=== PATIENT | female | born 1945 | race Caucasian/White ===

== ENCOUNTER 2019-09-16 05:19 | Inpatient (IN) ==
[2019-09-16] MEDS ORDERED: VANCOMYCIN 1,000 MG VIAL ONE (05:57)
[2019-09-16] MEDS ORDERED: CLINDAMYCIN INJ 50 ML IV ONE (05:58)
[2019-09-16] MEDS ORDERED: VANCOMYCIN INJ 1,000 MG in SODIUM CHLORIDE 0.9% 250 ML IV ONE (06:00)
[2019-09-16] MEDS ORDERED: ceFAZolin 1,000 MG in SYRINGE 1 EACH IV ONE (06:00)
[2019-09-16] MEDS ORDERED: DEXAMETHASONE 4 MG/1 ML VIAL ONE ×3 (06:28→08:52)
[2019-09-16] MEDS ORDERED: LIDOCAINE 1% 5 ML VIAL ONE ×2 (06:28→08:50)
[2019-09-16] MEDS ORDERED: BUPIVACAINE MPF 0.5% /EPI 30 ML VIAL ONE (06:28)
[2019-09-16] MEDS ORDERED: LACTATED RINGERS 1,000 ML IV SCH (07:00)
[2019-09-16] MEDS ORDERED: BISACODYL 10 MG SUPP RECTAL PRN (07:24)
[2019-09-16] MEDS ORDERED: MAGNESIUM HYDROXIDE SUSP 30 ML UDCUP PO PRN (07:24)
[2019-09-16] MEDS ORDERED: LACTULOSE 20 GM/30 ML UDCUP PO PRN (07:24)
[2019-09-16] MEDS ORDERED: PROMETHAZINE 25 MG/1 ML VIAL IM PRN (07:24)
[2019-09-16] MEDS ORDERED: TEMAZEPAM 7.5 MG CAPSULE PO PRN (07:24)
[2019-09-16] MEDS ORDERED: ALBUTEROL 2.5 MG/3 ML NEB RESP TX PRN (07:27)
[2019-09-16] MEDS ORDERED: tiZANidine 4 MG TABLET PO PRN (07:27)
[2019-09-16] MEDS ORDERED: ACETAMINOPHEN 500 MG TABLET PO PRN (07:27)
[2019-09-16] MEDS ORDERED: traMADol 50 MG TABLET PO PRN (07:27)
[2019-09-16] MEDS ORDERED: hydroCHLOROthiazide 25 MG TABLET PO PRN (07:27)
[2019-09-16] MEDS ORDERED: LIDOCAINE 2% 5 ML VIAL ONE (08:50)
[2019-09-16] MEDS ORDERED: propofoL 200 MG/20 ML VIAL IV ONE (08:50)
[2019-09-16] MEDS ORDERED: MIDAZOLAM 2 MG/2 ML VIAL ONE (08:51)
[2019-09-16] MEDS ORDERED: hydrALAZINE 20 MG/1 ML VIAL ONE (08:51)
[2019-09-16] MEDS ORDERED: KETAMINE 500 MG/10 ML VIAL ONE (08:51)
[2019-09-16] MEDS ORDERED: fentaNYL 100 MCG/2 ML VIAL ONE (08:51)
[2019-09-16] MEDS ORDERED: ETOMIDATE 40 MG/20 ML VIAL IV ONE (08:52)
[2019-09-16] MEDS ORDERED: SODIUM CHLORIDE 0.9% 250 ML IV ONE (08:52)
[2019-09-16] MEDS ORDERED: ONDANSETRON 4 MG/2 ML VIAL ONE (08:52)
[2019-09-16] MEDS ORDERED: LABETALOL 100 MG/20 ML VIAL IV ONE (08:52)
[2019-09-16] MEDS ORDERED: PHENYLEPHRINE 1 MG/10 ML SYRINGE IV ONE (08:52)
[2019-09-16] MEDS ORDERED: BUPIVACAINE SPINAL 0.75% 2 ML AMP SPINAL ONE (08:57)
[2019-09-16] MEDS ORDERED: MORPHINE 4 MG/1 ML VIAL IV PRN (09:52)
[2019-09-16] MEDS ORDERED: INFLUENZA VIRUS VACCINE 0.5 ML SYRINGE IM ONE (10:03)
[2019-09-16] MEDS: ONDANSETRON 4 MG/2 ML VIAL IV PRN ×2 (10:10→15:39)
[2019-09-16] MEDS: FOLIC ACID 1 MG TABLET PO SCH (10:18)
[2019-09-16] MEDS: DOCUSATE SODIUM 100 MG CAPSULE PO SCH ×2 (10:18→21:20)
[2019-09-16] MEDS: carvediloL 12.5 MG TABLET PO SCH ×2 (10:21→21:20)
[2019-09-16] MEDS: MORPHINE 4 MG/1 ML VIAL IV PRN (12:34)
[2019-09-16] MEDS: ceFAZolin 1,000 MG in SYRINGE 1 EACH IV SCH ×2 (14:27→21:20)
[2019-09-16] MEDS: FONDAPARINUX 2.5 MG/0.5 ML SYRINGE SUBCUT SCH (21:20)
[2019-09-16] MEDS: diphenhydrAMINE CAP 25 MG CAPSULE PO PRN (23:55)
[2019-09-17 06:00] LABS: Basophils % 0.1 % (0.0-0.8); Hematocrit 36.5 VOL% (35.7-47.0); Hemoglobin 12.2 GM/DL (12.0-16.0); Immature Granulocytes % 0.4 %; Immature Granulocytes Absolute 0.07 #; Lymphocytes # 0.8 10*3/uL (1.4-4.0); Lymphocytes % 5.2 % (21.3-54.2); Mean Corpuscular HGB Conc 33.4 GM/DL (32-36); Mean Corpuscular Volume 95.1 FL (87-102); Mean Platelet Volume 10.6 FL (9.6-12.0); Monocytes % 4.7 % (1.7-12.7); Neutrophils % 89.6 % (38.7-73.9); Platelet Count 234 T/CUMM (130-400); Red Blood Count 3.84 MC/CUMM (3.8-5.5); Red Cell Distribution Width 14.5 % (9.3-17.3)
[2019-09-17 06:37] LABS: Calcium 8.6 MG/DL (8.5-10.1); Osmolality,Calculated 276.8 MOS/KG (273-304)
[2019-09-17] MEDS: DOCUSATE SODIUM 100 MG CAPSULE PO SCH ×2 (08:40→21:02)
[2019-09-17] MEDS: FOLIC ACID 1 MG TABLET PO SCH (08:40)
[2019-09-17] MEDS: carvediloL 12.5 MG TABLET PO SCH ×2 (08:41→21:02)
[2019-09-17] MEDS: diphenhydrAMINE CAP 25 MG CAPSULE PO PRN (10:28)
[2019-09-17] MEDS: MORPHINE 4 MG/1 ML VIAL IV PRN (10:28)
[2019-09-17] MEDS: FONDAPARINUX 2.5 MG/0.5 ML SYRINGE SUBCUT SCH (21:01)
[2019-09-18] MEDS: DOCUSATE SODIUM 100 MG CAPSULE PO SCH (08:47)
[2019-09-18] MEDS: FOLIC ACID 1 MG TABLET PO SCH (08:48)
[2019-09-18] MEDS: carvediloL 12.5 MG TABLET PO SCH (08:48)
[2019-09-18 12:10] VITALS: BP 129/57
[2019-09-28] MEDS ORDERED: CYANOCOBALAMIN 1000 MCG/1 ML VIAL IM SCH (09:00)
== END 2019-09-18 15:59 | DRG 470 ==
LOC: N.SDSINP 05:19 → N.OR 05:19 → N.SDSINP 07:24 → N.3E 09:42
PROVIDERS: ADMIT Orthopaedic Surgery; ATTEND Orthopaedic Surgery

== ENCOUNTER 2020-04-13 16:33 | Observation (INO) ==
[2020-04-13 17:19] LABS: Basophils # 0.1 10*3/uL (0.0-0.2); Basophils % 0.7 % (0.0-0.8); Eosinophils # 0.1 10*3/uL (0.0-0.87); Eosinophils % 1.6 % (0.00-10.9); Hematocrit 42.2 VOL% (35.7-47.0); Hemoglobin 13.6 GM/DL (12.0-16.0); Immature Granulocytes % 0.1 %; Immature Granulocytes Absolute 0.01 #; Lymphocytes # 2.2 10*3/uL (1.4-4.0); Lymphocytes % 32.1 % (21.3-54.2); Mean Corpuscular HGB Conc 32.2 GM/DL (32-36); Mean Corpuscular Volume 97.5 FL (87-102); Mean Platelet Volume 10.2 FL (9.6-12.0); Monocytes % 8.4 % (1.7-12.7); Neutrophils % 57.1 % (38.7-73.9); Platelet Count 260 T/CUMM (130-400); Red Blood Count 4.33 MC/CUMM (3.8-5.5); Red Cell Distribution Width 13.6 % (9.3-17.3); White Blood Count 6.9 T/CUMM (4-12)
[2020-04-13 17:31] LABS: PT Patient Result 10.7 SECS (9.8-11.9); Partial Thromboplastin Time 28.9 SECS (23.9-33.8)
[2020-04-13 17:37] LABS: Albumin 3.4 G/DL (3.4-5.0); Bilirubin,Total 0.4 MG/DL (0.2-1.0); Osmolality,Calculated 276.4 MOS/KG (273-304); Total Protein 6.8 G/DL (6.4-8.3)
[2020-04-13 17:44] LABS: Apearance,Urine CLEAR (Clear); Bacteria,Urine Occasional /HPF (Few); Bilirubin,Urine Negative (Negative); Blood, Urine Negative (Negative); Glucose,Urine (UA) Negative (Negative); Ketones,Urine Negative (Negative); Nitrite,Urine Negative (Negative); Protein,Urine Negative; Squamous Epithelial Cell,Urine Occasional /HPF (0-10); Urine Color Straw (Yellow); Urine Specific Gravity 1.002 (1.001-1.035); Urine Urobilinogen < 2.0 EU/DL (0.2-1.0); WBC,Urine 1 /HPF (0-6)
[2020-04-13] MEDS ORDERED: ASPIRIN 325 MG TABLET PO STA (17:53)
[2020-04-13] MEDS ORDERED: ONDANSETRON 4 MG/2 ML VIAL IV PRN (18:06)
[2020-04-13] MEDS ORDERED: hydroCHLOROthiazide 12.5 MG CAPSULE PO PRN (18:07)
[2020-04-13] MEDS ORDERED: ALBUTEROL 2.5 MG/3 ML NEB RESP TX PRN (18:07)
[2020-04-13] MEDS ORDERED: tiZANidine 4 MG TABLET PO PRN (18:07)
[2020-04-13] MEDS ORDERED: ASPIRIN CHEW 81 MG TABLET PO SCH (18:30)
[2020-04-13] MEDS: ACETAMINOPHEN 325 MG TABLET PO PRN (22:05)
[2020-04-13] MEDS: DOCUSATE SODIUM 100 MG CAPSULE PO SCH (22:06)
[2020-04-13] MEDS: carvediloL 25 MG TABLET PO SCH (22:06)
[2020-04-14 05:26] LABS: Basophils # 0.1 10*3/uL (0.0-0.2); Basophils % 0.9 % (0.0-0.8); Eosinophils # 0.1 10*3/uL (0.0-0.87); Hematocrit 39.5 VOL% (35.7-47.0); Immature Granulocytes % 0.2 %; Immature Granulocytes Absolute 0.01 #; Lymphocytes # 2.2 10*3/uL (1.4-4.0); Lymphocytes % 39.2 % (21.3-54.2); Mean Corpuscular HGB Conc 32.9 GM/DL (32-36); Mean Corpuscular Volume 96.3 FL (87-102); Monocytes % 8.7 % (1.7-12.7); Platelet Count 245 T/CUMM (130-400); Red Cell Distribution Width 13.5 % (9.3-17.3); White Blood Count 5.5 T/CUMM (4-12)
[2020-04-14 05:43] LABS: Bilirubin,Total 0.8 MG/DL (0.2-1.0); Osmolality,Calculated 279.1 MOS/KG (273-304); Total Protein 5.9 G/DL (6.4-8.3)
[2020-04-14 05:45] LABS: VLDL CHOLESTEROL 22.8 MG/DL
[2020-04-14] MEDS ORDERED: LORazepam 2 MG/1 ML VIAL IV ONE (08:41)
[2020-04-14] MEDS: PANTOPRAZOLE 40 MG TABLET PO SCH (10:30)
[2020-04-14] MEDS: carvediloL 25 MG TABLET PO SCH ×2 (12:17→16:58)
[2020-04-14] MEDS: DOCUSATE SODIUM 100 MG CAPSULE PO SCH ×2 (12:17→22:13)
[2020-04-15] MEDS: ACETAMINOPHEN 325 MG TABLET PO PRN (04:00)
[2020-04-15] MEDS: DOCUSATE SODIUM 100 MG CAPSULE PO SCH (08:30)
[2020-04-15] MEDS: carvediloL 25 MG TABLET PO SCH (08:30)
[2020-04-15] MEDS: PANTOPRAZOLE 40 MG TABLET PO SCH (08:30)
[2020-04-15 12:56] VITALS: BP 147/83
[2020-04-16] MEDS ORDERED: METHOTREXATE 2.5 MG TABLET PO SCH (09:00)
[2020-04-16] MEDS ORDERED: FOLIC ACID 1 MG TABLET PO SCH (09:00)
[2020-04-27] MEDS ORDERED: CYANOCOBALAMIN 1000 MCG/1 ML VIAL IM SCH (09:00)
== END 2020-04-15 13:03 | disposition home or self-care (01) ==
LOC: N.ED 16:33 → INTOOBSV 18:06 → N.EDINP 18:06 → N.TELES 21:21
PROVIDERS: ADMIT Family Medicine; ATTEND Family Medicine